=== PATIENT | female | born 1965 | race Caucasian/White ===

== ENCOUNTER 2022-02-08 13:27 | Emergency (ER) | payer OTHER, SELFPAY ==
[2022-02-08 13:28] VITALS: BP 148/78; PULSE 89; RESP 15; TEMP 36.1; O2SAT 99; BMI 39.6
--- NOTE | 2022-02-08 13:58 | EDS_ITS ---
HPI History of Present Illness Chief Complaint: Headache Informant: patient Onset/Context/Timing Onset: Weeks (3) Context: Gradual Timing: Continuous Quality -Headache: Positive for Other (Pressure) Location: Generalized Worsened by: Bending forward Relieved by: Nothing Associated Symptoms/Injury Associated Symptoms: Positive for Nausea; Negative for Fever, Vomiting, Sore Throat, Sinus Pressure, Numbness, Tingling, Preceding Aura, Visual Changes, Blurred Vision, Photophobia or Visual Loss Injury - CAVAZOS: Negative for Direct Trauma, Fall or Assault Narrative Narrative: Patient presents with a headache that has been getting progressively worse over the last 3 days. Patient states it is gradually getting worse. Patient states it starts in the occipital region and radiates to the front of her head. Patient describes it as a pressure. Patient states it is worse whenever she bends forward. Patient admits to some nausea but denies any vomiting. Patient denies any visual changes. Patient denies any sinus pressure or sore throat. Patient states she does do a lot of lifting at work. Patient was seen at urgent care and now clinic. Patient states the medications they gave her have not been helping. [facility] Medical History Chronic stomach ulcer Hemorrhoids Home Medications cholecalciferol (vitamin D3) 10 mcg (400 unit) capsule 10 mcg PO DAILY 02/06/22 [History Last Taken Unknown] cyclobenzaprine 10 mg tablet 10 mg PO TID PRN muscle spasm 5 days #20 tabs 02/06/22 [Rx Last Taken Unknown] Allergy/AdvReac Type Severity Reaction Status Date / Time latex Allergy Intermediate hives Verified 02/08/22 13:29 Penicillins Allergy Intermediate hives Verified 02/08/22 13:29 Family History (Updated 02/06/22 @ 11:23 by Bea Ray RN) Other CVA (cerebral vascular accident) Cancer Thyroid disorder Social History Smoking Status: Never smoker ROS ROS ED Constitutional Constitutional ED: Denies chills or fever(s) Eyes Eyes: Denies blurry vision or change in vision ENT ENT ED: Denies rhinorrhea or sore throat Cardiovascular Cardiovascular: Denies chest pain or palpitations Respiratory/Chest Respiratory/Chest: Denies cough or dyspnea Gastrointestinal Gastrointestinal: Reports nausea; Denies vomiting Genitourinary Genitourinary ED: Denies dysuria or hematuria Musculoskeletal Musculoskeletal: Reports neck pain; Denies back pain Integumentary Denies abscess or rash Neurologic Neurologic: Reports headache(s); Denies weakness Allergic/Immunologic Allergic/Immunologic ED: Denies mouth swelling or urticaria EXAM Physical Exam Const Vital Signs: 02/08/22 13:28 Temperature 97 F L Temperature Source Temporal Pulse Rate 89 Respiratory Rate 15 Blood Pressure 148/78 H Blood Pressure Mean 101 Pulse Ox 99 Oxygen Delivery Method Room Air Positive well nourished and well developed General Appearance ED: well developed HEENT Reports moist mucous membranes Eyes PERRL and EOMs intact bilaterally Eyes Narrative: Funduscopic examination is benign bilaterally. Neck supple and no JVD Neck Narrative: There is mild tenderness over the cervical paraspinal muscles. There is no midline tenderness. There is no edema or ecchymosis. There is no bony crepitance or step-off. There is good range of motion. Resp normal respiratory effort and clear to auscultation bilaterally Cardio regular rate, regular rhythm and no murmurs GI normal to inspection, nondistended, normoactive bowel sounds and non-tender Palpation: soft Extremity normal to inspection General Extremety ED: Negative for edema or tenderness General Extremity: Negative for edema Neuro oriented x3, CN's II-XII intact bilaterally and no sensory deficits noted Sensorium / Orientation: alert Motor Exam: strength 5/5 throughout Psych mental status grossly normal Skin no rashes or lesions noted MDM MDM MDM Narrative Medical decision making narrative: Patient was given IV fluids, Reglan, and Benadryl initially. CT scan of the brain was obtained. There is no acute intracranial abnormality. This was interpreted by the radiologist and reviewed by myself. Patient had minimal relief of her headache. Patient was given a dose of Toradol and Imitrex. Patient was feeling better after this. Patient was instructed to rest in a dark quiet room. Patient was instructed to drink plenty of fluids. Patient was instructed to follow-up with her primary care physician in 5 to 7 days. Patient understood and was agreeable with the plan. All questions were answered. Radiography Diagnostic Testing: Clinical Impression(s) from Imaging Studies Brain CT 02/08/22 14:02 IMPRESSION: Chronic involutional changes of the brain. Electronically Signed: Sreedhar Alexander MD at 15:23 EDT , Discharge Plan Triage Chief Complaint: Headache ED Provider: Rocky Reynoso Dx/Rx/DC Orders Clinical Impression: Head ache Instructions: ED Headache Unspecified Prescriptions: No Action cholecalciferol (vitamin D3) 10 mcg (400 unit) capsule 10 mcg PO DAILY cyclobenzaprine 10 mg tablet 10 mg PO TID PRN (Reason: muscle spasm) 5 Days Qty: 20 0RF Primary Care Provider: Care Physician,No Primary Referrals: Paige Briceño MD [STAFF PHYSICIAN] - 3-5 Days Disposition Disposition: Home, Self Care
--- NOTE | 2022-02-08 14:02 | CT_ITS ---
STUDY: CT BRAIN WITHOUT CONTRAST REASON FOR EXAM: Female, 56 years old. 3 week history of headaches. RADIATION DOSAGE (If Supplied By Facility): CTDIvol = ( 47.06 ) mGy, DLP = ( 837.39 ) mGycm TECHNIQUE: Transaxial CT imaging of the brain was performed without administration of intravenous contrast material. Individualized dose optimization techniques were used for this CT. COMPARISON: No relevant priors. FINDINGS: Normal soft tissue structures. Normal calvarium. There is mild cerebral atrophy with widening of the extra-axial spaces and ventricular dilatation. Normal white matter tracts of the cerebral hemispheres. Normal basal ganglia and thalami. Normal brainstem. Normal cerebellum. There is no intracranial hemorrhage. There are no findings of an acute ischemic infarction. Normal visualized paranasal sinuses. CT/Brain/Head without Contrast IMPRESSION: Chronic involutional changes of the brain. Electronically Signed: Sreedhar Alexander MD at 15:23 EDT ,
[2022-02-08] MEDS: DiphenhydrAMINE 50 MG/ML Syringe 25 MG IV (14:18)
[2022-02-08] MEDS: 0.9% Normal Saline 1,000 ML 999 ML IV (14:19)
[2022-02-08] MEDS: Metoclopramide 10 MG/2 ML Vial IV (14:19)
[2022-02-08] MEDS: SUMAtriptan 6 MG/0.5 ML Vial SC (15:38)
[2022-02-08] MEDS: Ketorolac 30 MG/ML Syringe IV (15:38)
== END 2022-02-08 17:07 | disposition home or self-care (01) ==
PROVIDERS: Emergency Provider Emergency Medicine; Visit Provider Emergency Medicine
DX: R51.9 Headache, unspecified (principal); R11.0 Nausea
CPT/HCPCS: 70450; 96361; 96372; 96374; 96375; 99282; J3030

== ENCOUNTER 2022-03-01 10:00 | Outpatient (CLI) | payer OTHER, SELFPAY ==
--- NOTE | 2022-03-01 10:03 | MRI_ITS ---
STUDY: MRI RIGHT KNEE REASON FOR EXAM: Medial right knee pain. TECHNIQUE: Standardized fat and water weighted pulse sequences were obtained in all 3 orthogonal planes. COMPARISON: None. FINDINGS: There is a small horizontal tear of the posterior horn of the medial meniscus (proton-density sagittal images 29, 30) and mild blunting of the free margin of the body of the medial meniscus (T2 coronal images 15, 16) with a small displaced fragment in the medial gutter (T2 coronal images 13, 14). There is arthrosis of the medial femorotibial compartment with partial-thickness chondral loss (T2 sagittal image 17) and a chondral tear of the medial femoral condyle (T2 sagittal image 18). Normal medial femoral condyle and tibial plateau. Normal medial collateral ligamentous complex (MCL). Normal distal semimembranosus, gracilis and semitendinosus tendons. Normal lateral meniscus. There is arthrosis of the lateral femorotibial compartment with partial-thickness chondral loss of the lateral femoral condyle (T2 sagittal image 8). Normal lateral femoral condyle and tibial plateau. Normal proximal tibiofibular articulation. Normal lateral collateral (fibular) ligament. Normal popliteus tendon. Normal biceps femoris tendon. There is mild intrasubstance mucoid degeneration of the anterior cruciate ligament (T2 sagittal image 12)). Normal posterior cruciate ligament (PCL). Normal congruent patellofemoral articulation. Normal hyaline cartilage of the patellofemoral compartment. Normal medial and lateral patellar retinaculum. Normal visualized quadriceps tendon. Normal patellar tendon. Normal Hoffa''s fat pad. There is a minimal volume of fluid in the knee joint. There is a small popliteal cyst (T2 sagittal images 16-19). There is mild edema in the anterior subcutis adipose space. The otherwise visualized osseous structures are unremarkable. MRI/Lower Ext Joint Only (Routine) IMPRESSION: Medial meniscal tear. 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 Small popliteal cyst. Electronically Signed: Conor Chase MD at 11:24 EDT ,
== END 2022-03-01 23:59 | disposition home or self-care (01) ==
PROVIDERS: Referring Provider Orthopaedic Surgery Sports Medicine; Visit Provider Orthopaedic Surgery Sports Medicine
DX: S83.411A Sprain of medial collateral ligament of right knee, initial encounter (principal); S83.241A Other tear of medial meniscus, current injury, right knee, initial encounter
CPT/HCPCS: 73721

== ENCOUNTER 2022-10-21 11:27 | Emergency (ER) | payer OTHER, SELFPAY ==
[2022-10-21 11:29] VITALS: BP 146/101; PULSE 81; RESP 14; TEMP 36.2; O2SAT 97; BMI 41.0
--- NOTE | 2022-10-21 11:43 | EX.ED.DYSGE1 ---
HPI <BUD Mendez - Last Filed: 10/21/22 11:51> History of Present Illness Chief Complaint: Lower Extremity Injury Narrative Narrative: 57-year-old female is here with right lower extremity pain. She has been having knee pain for few months and saw Dr. Hill in orthopedics. She had an MRI showing a medial meniscus tear and popliteal cyst. He prescribed meloxicam and the swelling went down but she continues to have pain. The pain now seems more lateral radiating into the calf. It woke her up from sleep last night. She went to urgent care and they sent her here for concern for blood clot. She has no swelling or skin changes. No chest pain or shortness of breath. No history of DVT or PE. No trauma. PFS <BUD Mendez - Last Filed: 10/21/22 11:51> [facility] Medical History (Updated 10/21/22 @ 11:50 by BUD Mendez) Chronic stomach ulcer Contact with and (suspected) exposure to other viral communicable diseases COVID-19 Hemorrhoids MCL sprain of right knee Osteoarthritis of right knee Right knee pain Strain of right gastrocnemius muscle or tendon Tear of medial meniscus of right knee Tension headache URI (upper respiratory infection) Worsening headaches Home Medications cholecalciferol (vitamin D3) 10 mcg (400 unit) capsule 10 mcg PO DAILY 02/06/22 [History Last Taken Unknown] omeprazole 40 mg capsule,delayed release 40 mg PO DAILY 02/22/22 [History Last Taken Unknown] dexamethasone 6 mg tablet 6 mg PO DAILY #5 tabs 09/05/22 [Rx Last Taken Unknown] meloxicam 7.5 mg tablet 7.5 mg PO DAILY PRN pain #14 tabs 10/02/22 [Rx Last Taken Unknown] phenylephrine 5 mg-dextromethorphan 10 mg-acetaminophen 325 mg capsule (Vicks DayQuil Cold and Flu Relief) cap PO PRN 10/02/22 [History Last Taken Unknown] Allergy/AdvReac Type Severity Reaction Status Date / Time latex Allergy Intermediate hives Verified 10/02/22 15:32 Penicillins Allergy Intermediate hives Verified 10/02/22 15:32 Family History Other CVA (cerebral vascular accident) Cancer Thyroid disorder Surgical History Hx of breast biopsy Hx of hysterectomy Social History Smoking Status: Never smoker ROS <BUD Mendez - Last Filed: 10/21/22 11:51> ROS ED ROS Narrative Constitutional: Negative for fever, chills, malaise. CVS: Negative for chest pain. Respiratory: Negative for shortness of breath. GI: Negative for abdominal pain, nausea, vomiting. Neuro: Negative for motor/sensory dysfunction. Skin: Negative for rash, abscess, or wound. Musc: Positive for right knee pain. No swelling or trauma. Heme: Negative for easy bruising, bleeding, lymphadenopathy. EXAM <BUD Mendez - Last Filed: 10/21/22 11:51> Physical Exam Narrative Exam Narrative: CONST: Patient sitting in no acute distress. EYES: Normal inspection. NECK: Normal inspection. RESP: No respiratory distress, CTAB. CVS: Regular rate and rhythm, no murmur, no gallop. SKIN: Color normal, no rash, warm, dry, intact. EXTREMITIES: Normal appearance of bilateral lower extremities, full range of motion, normal sensation and 2+ DP pulses. Tender over right lateral knee just under the joint along the upper calf area. There is no tenderness over the deep venous system, popliteal region, medial thigh. No swelling or skin changes. Normal extension, negative anterior and posterior drawer and varus and valgus stress. NEURO: Oriented x4. PSYCH: Normal affect. Const Vital Signs: 10/21/22 11:29 Temperature 97.2 F L Temperature Source Temporal Pulse Rate 81 Respiratory Rate 14 Blood Pressure 146/101 H Blood Pressure Mean 116 Pulse Ox 97 Oxygen Delivery Method Room Air <Dr. Rocky Reynoso, DO - Last Filed: 10/21/22 12:48> Physical Exam Const Vital Signs: 10/21/22 11:29 Temperature 97.2 F L Temperature Source Temporal Pulse Rate 81 Respiratory Rate 14 Blood Pressure 146/101 H Blood Pressure Mean 116 Pulse Ox 97 Oxygen Delivery Method Room Air MDM <BUD Mendez - Last Filed: 10/21/22 11:51> MDM MDM Narrative Medical decision making narrative: History gathered from: Patient, significant other Patient has subacute right knee pain. Pain worsened to the lateral aspect recently. She does have some tenderness of the upper lateral gastrocnemius area. No bony tenderness. Full range of motion and neurovascularly intact. There is no tenderness of the deep venous system or palpable cords. No edema or signs of infection. I reviewed her orthopedic notes with Dr. Hill. MRI last year showed medial meniscus tear and a small popliteal cyst. Recent office visit from September 2022 showed suspected gastroc tendinitis treated with meloxicam. She states this is no longer helping. They have little concern this is a DVT based on location and chronicity of the symptoms but patient would like reassurance with an ultrasound. They are not available today so this will be ordered for tomorrow. Patient did not want any pain medication here. I advised she can try Voltaren gel on the area and continue [id number] analgesia. I recommended following up again with orthopedics. She was agreeable with this plan and discharged in stable condition. Differential: Muscle spasm, tendinitis, DVT Test considered but not ordered: No recent trauma no bony tenderness no indication for x-ray. External records reviewed: MRI of the lower extremity on 03/01/2022 shows a medial meniscal tear, arthrosis of medial labral femoral-tibial compartments, and small popliteal cyst. <Dr. Rocky Reynoso, DO - Last Filed: 10/21/22 12:48> [facility] Treatment and Re-Evaluation :: I have personally performed a face to face assessment of the patient and have reviewed the [facility] Note. I performed a substantive portion of the visit including all aspects of the following. My sheppard findings include: History: Patient presents with pain to her right calf and posterior knee that has been getting worse over the past few days. Patient was seen at urgent care earlier today and was referred to the emergency department for possible DVT. Patient states her pain is mainly over the posterior lateral aspect of the right knee. Patient had a recent MRI which showed a medial meniscus tear. Patient denies any new trauma or injury. Patient states her pain radiates down her right lower leg. Exam: Vital signs are stable. Patient is afebrile. Patient is in no acute distress. Musculoskeletal exam reveals tenderness over the biceps femoris tendon and head of the gastrocnemius. There is no edema or ecchymosis. There is no calf tenderness. There is no bony crepitance or step-off. There is full range of motion of the right knee. Pedal pulses are equal bilaterally. Sensation is intact to light touch in all digits. There is no pain with dorsiflexion of the ankle. Medical Decision Making: Differential diagnosis includes tendinitis, muscle strain, and DVT. My clinical suspicion for DVT is low. Patient will be given a prescription for an outpatient venous duplex to be obtained tomorrow since it is unavailable at the present time. I do not feel patient requires a dose of Lovenox since my suspicion for DVT is low. Patient was instructed to continue her analgesics as prescribed. Patient was instructed to follow-up with her orthopedic surgeon in 5 to 7 days. Patient was instructed to follow-up with her primary care physician as well. Patient understood and was agreeable with the plan. All questions were answered. Discharge Plan Triage Chief Complaint: Lower Extremity Injury ED Midlevel Provider: Edwina Doss ED Provider: Rocky Reynoso Dx/Rx/DC Orders Clinical Impression: Knee pain, right Instructions: ED Knee Pain of Uncertain Cause Prescriptions: No Action cholecalciferol (vitamin D3) 10 mcg (400 unit) capsule 10 mcg PO DAILY omeprazole 40 mg capsule,delayed release(DR/EC) 40 mg PO DAILY dexamethasone 6 mg tablet 6 mg PO DAILY Qty: 5 0RF Vicks DayQuil Cold-Flu Relief 5-10-325 mg capsule PO PRN meloxicam 7.5 mg tablet 7.5 mg PO DAILY MDD 2 PRN (Reason: pain) Qty: 14 1RF Other Ambulatory Orders: Venous Duplex US, Unilateral (Stat) Facility: [facility] - Location: [facility] Ordered By: Edwina Doss Primary Care Provider: Care Physician,No Primary Referrals: Care Physician,No Primary [Primary Care Provider] - Disposition Disposition: Home, Self Care Discharge Date/Time: 10/21/22 11:58
== END 2022-10-21 11:58 | disposition home or self-care (01) ==
LOC: ED 11:54
PROVIDERS: Emergency Provider Emergency Medicine; Visit Provider Emergency Medicine
DX: M25.561 Pain in right knee (principal); Z87.11 Personal history of peptic ulcer disease; Z79.899 Other long term (current) drug therapy; M71.21 Synovial cyst of popliteal space [Baker], right knee
CPT/HCPCS: 99282

== ENCOUNTER → 2022-10-22 | Outpatient (CLI) | payer OTHER, SELFPAY ==
--- NOTE | 2022-10-22 12:49 | VDLE_ITS ---
Reason For Study: RLE PAIN RIGHT GSV is normal. CFV is compressible, spontaneous, phasic, competent and demonstrates normal augmentation. FV is compressible, spontaneous, phasic, competent and demonstrates normal augmentation. POP V is compressible, spontaneous, phasic, competent and demonstrates normal augmentation. T/P Trunk is compressible. PTV is compressible. RT PerV is compressible. Procedure This is a venous duplex using B-mode, color flow and spectral Doppler. Exam performed in department. The exam was diagnostic. Image # 10 & 11are the PTV & PERV. VL/Venous Duplex US, Unilateral Interpretation Summary Right no DVT or SVT. Ordering Physician: Edwina Doss Referring Physician: NO PCP Performed By: Yvonne Lopez, RDCARLO, RVT
== END | disposition home or self-care (01) ==
LOC: CVS 12:48
PROVIDERS: Visit Provider Physician Assistant
DX: M79.604 Pain in right leg (principal)
CPT/HCPCS: 93971

== ENCOUNTER → 2024-10-23 | Outpatient (CLI) | payer OTHER, SELFPAY ==
[2024-10-23 14:47] LABS: Absolute Lymphocyte Count 1.83 X10^3/uL (0.83-4.51); Absolute Neutrophil Count 4.1 X10^3/uL (2.0-7.7); Basophil# 0.02 X10^3/uL; Basophil% 0.3 % (0-1); Eosinophil# 0.14 X10^3/uL; Eosinophils% 2.2 % (0-5); Hematocrit 40.8 % (37-47); Hemoglobin 12.9 g/dL (12.0-15.0); Lymphocyte # 1.83 X10^3/ul (0.83-4.51); Lymphocyte % 28.3 % (19-41); Mean Corp Hgb Conc 31.6 g/dL (32-36); Mean Corpuscular Hgb 26.8 pg (27.0-32.0); Mean Corpuscular Volume 84.6 fL (81-99); Mean Platelet Vol. 10.4 fl (6.2-12.0); Monocyte# 0.41 X10^3/uL; Monocyte% 6.3 % (0-10); NRBC Flagged by Analyzer 0 % (0-5); Neutrophil # 4.06 X10^3/uL (2.7-7.7); Neutrophil % 62.7 % (47-70); Platelet Count 262 K/mm3 (150-450); RBC Distribution Width CV 14.1 % (11.6-14.6); RBC Distribution Width SD 43.4 fl (35.1-43.9); Red Blood Count 4.82 M/mm3 (4.2-5.4); White Blood Count 6.5 K/mm3 (4.4-11.0)
[2024-10-23 15:12] LABS: ALB/GLOB Ratio 1.4 RATIO (0.9-2.4); AST(SGOT) 19 U/L (<=31); Alanine Aminotransfer ALT/SGPT 19 U/L (<=34); Albumin, Serum 4.1 g/dL (3.5-5.0); Alkaline Phosphatase 98 U/L (35-104); Anion Gap 9 (5-15); BUN 10 mg/dL (4-19); Calcium,Total 9.1 mg/dL (7.6-11.0); Carbon Dioxide 27.4 mmol/L (21.0-32.0); Chloride 107 mmol/L (98-108); Creatinine, Serum 0.69 mg/dL (0.70-1.20); EST Glomerular Filtration Rate 101 (>60); Globulin 2.9 g/dL (2.2-4.2); Glucose 115 mg/dL (70-99); Potassium 3.9 mmol/L (3.3-5.1); Sodium Level 143 mmol/L (133-145)
[2024-10-26 14:08] LABS: Immunoglobulin A 198 mg/dL (87-352); t-Transglutaminase IgA <2 U/mL (0-3)
== END | disposition home or self-care (01) ==
LOC: LAB 14:15
PROVIDERS: Referring Provider Student in an Organized Health Care Education/Training Program; Visit Provider Student in an Organized Health Care Education/Training Program
DX: K90.0 Celiac disease (principal)
CPT/HCPCS: 36415; 80053; 82784; 83516; 85025

== ENCOUNTER 2025-01-15 10:54 | Day surgery (SDC) | payer OTHER, SELFPAY ==
[2025-01-15] VITALS (8 sets, daily range): BP systolic 98–124; BP diastolic 49–64; PULSE 59–70; RESP 16–18; TEMP 36.2–36.4; O2SAT 97–100; BMI 38.3
[2025-01-15] MEDS: Lactated Ringers 1,000 ML 15 ML IV (11:21)
--- NOTE | 2025-01-15 11:24 | PRE.ANES_ITS ---
ASA Classification* ASA Classification ASA Classification: 3 Assessment & Plan Anesthesia* Anesthesia Assessment Anesthesia Assessment: Discussed sedation and/or anesthesia options, risks, benefits, and alternatives with patient/parents/legal guardian/POA. Questions invited. The patient/parents/legal guardian/POA seems to understand and agrees to proceed with anesthesia plan. Reviewed the physical assessment, medical history, allergy history and patient home medications list prior to surgery/procedure/anesthetic and documented any changes. Performed airway and anesthesia risk assessments. Anesthesia Type Anesthesia Type: MAC Anesthesia Focused Assessment* Temperature: 97.2 F Pulse Rate: 70 Blood Pressure: 124/64 Respiratory Rate: 18 Pulse Ox: 100 Airway Assessment Mouth opens: >3 cm Mallampati Score: II Labs Anesthesia Preop lab: CBC WBC 6.5 K/mm3 (4.4-11.0) 10/23/24 14:18 10/23/24 RBC 4.82 M/mm3 (4.2-5.4) 10/23/24 14:18 10/23/24 Hgb 12.9 g/dL (12.0-15.0) 10/23/24 14:18 10/23/24 Hct 40.8 % (37-47) 10/23/24 14:18 10/23/24 Plt Count 262 K/mm3 (150-450) 10/23/24 14:18 10/23/24 CHEMISTRY Potassium 3.9 mmol/L (3.3-5.1) 10/23/24 14:18 10/23/24 Sodium 143 mmol/L (133-145) 10/23/24 14:18 10/23/24 BUN 10 mg/dL (4-19) 10/23/24 14:18 10/23/24 Creatinine 0.69 mg/dL (0.70-1.20) L 10/23/24 14:18 Glucose 115 mg/dL (70-99) H 10/23/24 14:18 10/23/24 COAG Pre-Assessment Diagnosis/Proposed Procedure Planned Operative Procedure(s): CSCOPE, EGD Anesthesia History Anesthesia History - echo vascular technologist: Anesthesia History - echo vascular technologist Hx Hospitalization No 01/12/25 12:37 Any Problems With Anesthesia No 01/12/25 12:37 Cholinesterase deficiency No 01/12/25 12:37 You/Your Family Experience No 01/12/25 12:37 fever (hyperthermia) with Relationship Recent Exposure to Contagious No 01/15/25 11:10 Disease Does patient have nerve No 01/12/25 12:37 stimulator Patient instructed to have device shut off --Does patient have Pacemaker or ICD? When Was Last Pacemaker Check QUESTION #4 FULL TEXT: You/Your Family Experience fever (hyperthermia) with Anesthesia Last Oral Intake Last Oral intake: Last Oral Intake NPO since Meds taken in AM with sips of water? Meds patient instructed to take am of surgery PONV PONV - echo vascular technologist: PONV - echo vascular technologist Female Yes 01/12/25 12:37 HX of Motion Sickness Yes 01/12/25 12:37 HX of N/V After Surgery Yes 01/12/25 12:37 Non-Smoker Yes 01/12/25 12:37 Duration of Surgery greater No 01/12/25 12:37 than 60 minutes Number of Risk Factors 4 01/12/25 12:37 PONV Score Severe Risk 01/12/25 12:37 Height & Weight Height & Weight: Anesthesia: Height & Weight Height 5 ft 1 in 01/15/25 11:10 Weight: 92 kg 01/15/25 11:10 Body Mass Index (BMI) 38.3 01/15/25 11:10 Respiratory Assessment Respiratory Assessment - echo vascular technologist: Respiratory Tract Infection Hx - echo vascular technologist Hx Respiratory Tract Infection No 01/12/25 12:37 STOP Sleep Apnea STOP Sleep Apnea - echo vascular technologist: STOP Sleep Apnea - echo vascular technologist Hx Hypertension No 01/12/25 12:37 Hx Sleep Apnea No 01/12/25 12:37 CPAP BIPAP Do you snore loudly (louder No 01/12/25 12:37 than talking or can be heard Do you often feel tired/ No 01/12/25 12:37 fatigued/ sleepy during daytime? Has anyone observed you stop No 01/12/25 12:37 breathing during sleep? STOP Results Negative 01/12/25 12:37 QUESTION #5 FULL TEXT : Do you snore loudly (louder than talking or can be heard through closed doors)? 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 Specify any problems Hx of Preganancy in last 3 N/A 01/12/25 12:37 Months Nurse Filling Out Transfusion NBUCHER 01/12/25 12:37 & Questions: Date: 01/12/25 01/12/25 12:37 Time: 12:38 01/12/25 12:37 Patient unable to answer at this time (ie. confused, unrespo /Reproduction History /Reproductive History - echo vascular technologist: /Reproductive Hx- echo vascular technologist Hx Now No 01/12/25 12:37 Gestational Age (in weeks): EDC: Hx Hx Para Hx Section SAB No 01/12/25 12:37 Active Medications Active Medications: Current Medications Generic Name Dose Route Start Last Admin Trade Name Freq PRN Reason Stop Dose Admin Lactated Ringer's 1,000 mls @ 15 mls/hr 01/15/25 11:00 01/15/25 11:21 IV 15 mls/hr .Q48H FARSHAD Administration PFSH Medical History Loss of hearing Osteoarthritis Anemia Restless legs Dietary restriction History of hiatal hernia History of IBS Diverticulosis PONV (postoperative nausea and vomiting) GERD (gastroesophageal reflux disease) Leg cramps Former smoker Strain of right gastrocnemius muscle or tendon COVID-19 Contact with and (suspected) exposure to other viral communicable diseases URI (upper respiratory infection) Osteoarthritis of right knee MCL sprain of right knee Tear of medial meniscus of right knee Right knee pain Tension headache Worsening headaches Chronic stomach ulcer Hemorrhoids Home Medications ?Medication ?Instructions ?Recorded ?Last Taken ?Type cholecalciferol (vitamin D3) 10 10 mcg PO DAILY Unknown History mcg (400 unit) capsule omeprazole 40 mg capsule,delayed 40 mg PO QHS 02/22/22 Unknown History release Allergy/AdvReac Type Severity Reaction Status Date / Time latex Allergy Intermediate hives Verified 01/15/25 11:08 Penicillins Allergy Intermediate hives Verified 01/15/25 11:08 Family History Other CVA (cerebral vascular accident) Cancer Thyroid disorder Surgical History History of esophagogastroduodenoscopy (EGD) History of colonoscopy History of total knee replacement (09/10/23) Hx of breast biopsy Hx of hysterectomy Social History Smoking Status: Never smoker Review of Systems (Anesthesia) ROS Narrative System reviewed and no additional complaints, except as documented.
--- NOTE | 2025-01-15 12:00 | EGD_PTH ---
PATIENT: HAMIDA ARMSTRONG LOC: EN U#:[id number] AGE/SX: 59/F ROOM: RE01/15/[address]: Dr. Wojciech Spence DO : 1965 BED: DIS: 01/15/2025 SPEC #: [id number] RECD: 01/15/25 15:58 STATUS: AKBAR REJt #: [id number] LAVON: 01/15/25 12:[address]: Wojciech Spence DEPT: SURGICAL PATHOLOGY RECD BY: Josse Oliveros ENTERED: 01/18/25 08:36 SP TYPE: EGD BIOPSY OTHR DR: No Primary Care Phys Tissues: A - Duodenum, NOS B - Gastric mucous membrane C - Ileum, NOS D - Cecum, NOS E - COLON BIOPSY Procedures: Immunohistochemical Stains Surgery Specimen Level IV HEADER OPERATION: Colonoscopy, EGD and biopsy PRE-OP DIAGNOSIS: Abdominal pain, diarrhea, celiac disease TISSUE SUBMITTED: A- Duodenum biopsy, B- Gastric body biopsy, C- Terminal ileum biopsy, D- Cecum biopsy, E- Random colon biopsy MICROSCOPIC DIAGNOSIS A. Duodenum, biopsy: * Kaitlin gland hyperplasia with gastric mucin cell metaplasia suggestive of peptic injury. * Negative for increased intraepithelial lymphocytes. B. Stomach, body, biopsy: No specific pathologic change. IHC negative for H pylori organisms. C. Terminal ileum, biopsy: No specific pathologic change. D. Colon, cecum, biopsy: No specific pathologic change. E. Colon, random, biopsy: * No specific pathologic change. * The histologic features of microscopic colitis are not demonstrated. MICROSCOPIC DESCRIPTION Slides are reviewed. All matched controls reacted appropriately. These tests were developed and their performance characteristics determined by [facility]. They may not have been cleared or approved by the U.S. Food and Drug Administration. The FDA has determined that such clearance or approval is not necessary. The above immunohistochemical/dualISH markers are viewed by the Pathologist. GROSS DESCRIPTION A. Received in fixative is one container labeled with the patient's name and designated Duodenum biopsy. The specimen consists of three irregular fragments of light etienne soft tissue that in aggregate measure 0.3 to 0.7 cm. The specimen is totally submitted in one cassette. B. Received in fixative is one container labeled with the patient's name and designated Gastric body. The specimen consists of two irregular fragments of light etienne soft tissue that in aggregate measure 0.4 and 0.6 cm. The specimen is totally submitted in one cassette. C. Received in fixative is one container labeled with the patient's name and designated Biopsy terminal ileum. The specimen consists of two irregular fragments of light etienne soft tissue that in aggregate measure 0.3 and 0.4 cm. The specimen is totally submitted in one cassette. D. Received in fixative is one container labeled with the patient's name and designated Cecum biopsy. The specimen consists of one irregular fragment of light etienne soft tissue that measures 0.7 cm. The specimen is totally submitted in one cassette. E. Received in fixative is one container labeled with the patient's name and designated Random colon biopsies. The specimen consists of etienne soft tissue measuring 1.4 x 0.7 x 0.2cm in aggregate. UT/ 01/18/2025 CPT:28189g2,60253
--- NOTE | 2025-01-15 12:07 | HP.PCM_ITS ---
HPI - General General Date of Admission: 01/15/25 Date of Service: 01/15/25 Chief Complaint: Abdominal pain and diarrhea HPI Narrative Pt has a PMHx of celiac disease diagnosed in 2014. Pt recently moved to the area and wanted to reestablish her care. She has been struggling with urgent soft stools after she eats for a few years. HSe has about 4-5 bm per day. She does not ever have solid formed stools. She has been gluten free since 2014 but she feels its possible that she has had accidental exposure. She notes that her daughter has also been diagnosed with celiac. Her father of colon cancer in his 60s. Last EGD (inflammation) and colonoscopy (polyps and diverticulosis) in 2021. [facility] Medical History Loss of hearing Osteoarthritis Anemia Restless legs Dietary restriction History of hiatal hernia History of IBS Diverticulosis PONV (postoperative nausea and vomiting) GERD (gastroesophageal reflux disease) Leg cramps Former smoker Strain of right gastrocnemius muscle or tendon COVID-19 Contact with and (suspected) exposure to other viral communicable diseases URI (upper respiratory infection) Osteoarthritis of right knee MCL sprain of right knee Tear of medial meniscus of right knee Right knee pain Tension headache Worsening headaches Chronic stomach ulcer Hemorrhoids Home Medications ?Medication ?Instructions ?Recorded ?Last Taken ?Type cholecalciferol (vitamin D3) 10 10 mcg PO DAILY Unknown History mcg (400 unit) capsule omeprazole 40 mg capsule,delayed 40 mg PO QHS 02/22/22 Unknown History release Allergy/AdvReac Type Severity Reaction Status Date / Time latex Allergy Intermediate hives Verified 01/15/25 11:08 Penicillins Allergy Intermediate hives Verified 01/15/25 11:08 Family History Other CVA (cerebral vascular accident) Cancer Thyroid disorder Surgical History History of esophagogastroduodenoscopy (EGD) History of colonoscopy History of total knee replacement (09/10/23) Hx of breast biopsy Hx of hysterectomy Social History Smoking Status: Never smoker ROS Constitutional Constitutional: Denies fatigue, fever(s), poor appetite, weight gain or weight loss Gastrointestinal Gastrointestinal: Denies belching, bloating, change in bowel habits, change in stool character, chewing difficulty, coffee ground emesis, constipation, cramping, diarrhea, dyspepsia, dysphagia, early satiety, excessive flatus, fecal incontinence, heartburn, hematemesis, hematochezia, hemorrhoids, loose stools, melena, nausea, odynophagia, rectal bleeding, tenesmus, vomiting or weight changes Vital Signs Vital Signs Vital Signs: 01/15/25 11:10 01/15/25 11:10 01/15/25 11:25 Temperature 97.2 F L 97.2 F L Temperature Source Temporal Pulse Rate 70 70 Respiratory Rate 18 18 Respiratory Pattern Normal Blood Pressure 124/64 H 124/64 H Blood Pressure Mean 84 Blood Pressure Source Monitor Blood Pressure Position Semi-Fowlers Blood Pressure Location Right Arm Pulse Ox 100 100 Oxygen Delivery Method Room Air Weight Weight: 202 lb 13.204 oz Body Mass Index (BMI) 38.3 Physical Exam Const alert, oriented x3, no apparent distress and healthy appearing General Appearance: cooperative GI normal to inspection, nondistended, normoactive bowel sounds, soft to palpation, non-tender and non-distended Percussion: normal to percussion Rectal Exam: deferred Assessment & Plan Assessment/Plan (1) Celiac disease: (2) Abdominal pain: (3) Diarrhea: PLAN: Assessment and Plan Assessment and Plan (1) Abdominal symptoms: (2) Celiac disease: Status: Acute Plan: This is a 59 yo female pt here today for evaluation of celiac disease. Pt diagn osed with Celiac in 2014 and has avoided all gluten since. Over the past few years pt has had issues with soft urgent stools 4-5x per day. I will order celiac blood test to determine if she has had an accidental exposure. Pt has family hx of colon cancer in her father at age 60. She will also have an EGD and colonoscopy to evaluate her GI tract. -EGD and colonoscopy -Gluten avoidance -IGa and ttg iga Orders: Orders Immunoglobulin A Today K90.0 - Celiac disease t-Transglutaminase IgA Today K90.0 - Celiac disease Comprehensive Metabolic Profil Today K90.0 - Celiac disease CBC W/Diff, Automated Today K90.0 - Celiac disease
--- NOTE | 2025-01-15 13:25 | PCM.POST.ANE ---
Anesthesia: Postop Eval I Current Vital Signs Temperature: 97.6 F Pulse Rate: 62 Blood Pressure: 120/56 Respiratory Rate: 16 Pulse Ox: 99 Oxygen Delivery Method: Room Air Assessment Airway patent: Yes Spontaneous unlabored respirations: Yes Mental status: Awake and Calm nausea: No Vomiting: No Anesthesia Complication: No Fluid Hydration Crystalloid volume administer (ml): 700 Total IV fluid infused: 700 Progress Note Anesthesia document: Postop Eval 1 completed: Yes
--- NOTE | 2025-01-15 13:27 | PCM.POSTANE2 ---
Anesthesia Postop Eval I Sum Postop Eval Completion status Anesthesia document: Postop Eval 1 completed: Yes Anesthesia Postop Eval I Summary Anesthesia Postop Eval I Summary: Anesthesia Postop Eval I: Assessment Summary Airway patent Yes 01/15/25 13:27 [email or web address] Spontaneous unlabored Yes 01/15/25 13:27 [email or web address] respirations Mental status Awake,Calm 01/15/25 13:27 [email or web address] nausea No 01/15/25 13:27 [email or web address] Vomiting No 01/15/25 13:27 [email or web address] Anesthesia Postop Eval I: Fluid Summary Crystalloid volume administer 700 01/15/25 13:27 [email or web address] (ml) Colloids volume administered ( ml) Blood Product volume administered (ml) Total IV fluid infused 700 01/15/25 13:27 [email or web address] Anesthesia Postop Eval I: Summary Notes Anesthesia Complication No 01/15/25 13:27 [email or web address] Anesthesia Complication Comment: Post-operative progress note Anesthesia: Postop Eval II Evaluation Mental status: Awake Pain Level: 0 nausea: No Vomiting: No
--- NOTE | 2025-01-15 13:29 | OP.CCLET_ITS ---
01/15/2025 No Primary Care Physician Re : Upper GI endoscopy procedure for Marta Zamora Dear Care Physician This procedure was performed on Wednesday, January 15, 2025. My impressions and recommendations are as follows: Impressions : - Normal esophagus. - Erythematous mucosa in the gastric body. Biopsied. - Duodenitis. Biopsied. Recommendations : - Discharge patient to home. - Resume previous diet. - Continue present medications. - Await pathology results. My findings are described in the full procedure note, which is enclosed. If I can be of further assistance, please feel free to contact me at . Sincerely, Wojciech Spence, 01/15/2025 1:28:40 PM This report has been signed electronically.
--- NOTE | 2025-01-15 13:29 | OP.EGD_ITS ---
Patient Name: Marta Zamora Procedure Date: 01/15/2025 12:49 PM Date of : 1965 Age: 59 Procedure: Upper GI endoscopy Indications: Epigastric abdominal pain, Functional Dyspepsia Providers: Wojciech Spence DO Referring MD: No Primary Care Physician Medicines: Monitored Anesthesia Care Patient Profile: This is a 59 year old female. Refer to note in patient chart for documentation of history and physical. Patient has symptoms of chronic abdominal cramping, chronic abdominal distention and acute epigastric abdominal pain. Complications: No immediate complications. Procedure: Pre-Anesthesia Assessment: - Prior to the procedure, a History and Physical was performed, and patient medications and allergies were reviewed. The patient is competent. The risks and benefits of the procedure and the sedation options and risks were discussed with the patient. All questions were answered and informed consent was obtained. Patient identification and proposed procedure were verified by the physician in the pre-procedure area. Mental Status Examination: alert and oriented. Airway Examination: normal oropharyngeal airway and neck mobility. Respiratory Examination: clear to auscultation. CV Examination: normal. Prophylactic Antibiotics: The patient does not require prophylactic antibiotics. Prior Anticoagulants: The patient has taken no anticoagulant or antiplatelet agents except for NSAID medication. ASA Grade Assessment: II - A patient with mild systemic disease. After reviewing the risks and benefits, the patient was deemed in satisfactory condition to undergo the procedure. The anesthesia plan was to use monitored anesthesia care (MAC). Immediately prior to administration of medications, the patient was re-assessed for adequacy to receive sedatives. The heart rate, respiratory rate, oxygen saturations, blood pressure, adequacy of pulmonary ventilation, and response to care were monitored throughout the procedure. The physical status of the patient was re-assessed after the procedure. After obtaining informed consent, the endoscope was passed under direct vision. Throughout the procedure, the patient's blood pressure, pulse, and oxygen saturations were monitored continuously. The colonoscope was introduced through the mouth, and advanced to the third part of the duodenum. Small bowel enteroscopy was deemed necessary. The upper GI endoscopy was accomplished without difficulty. The patient tolerated the procedure well. Scope In: 12:57:16 PM Scope Out: 1:00:48 PM Total Procedure Duration Time 0 hours 3 minutes 32 seconds Findings: The examined esophagus was normal. Patchy mildly erythematous mucosa without bleeding was found in the gastric body. Biopsies were taken with a cold forceps for histology. Verification of patient identification for the specimen was done. Estimated blood loss was minimal. Patchy mild inflammation characterized by erosions, erythema and friability was found in the duodenal bulb and in the first portion of the duodenum. Biopsies were taken with a cold forceps for histology. Verification of patient identification for the specimen was done. Estimated blood loss was minimal. Impression: - Normal esophagus. - Erythematous mucosa in the gastric body. Biopsied. - Duodenitis. Biopsied. Recommendation: - Discharge patient to home. - Resume previous diet. - Continue present medications. - Await pathology results. Procedure Code(s): --- Professional --- 43387, Small intestinal endoscopy, enteroscopy beyond second portion of duodenum, not including ileum; with biopsy, single or multiple CPT copyright 2021 [employer]. All rights reserved. The codes documented in this report are preliminary and upon breastfeeding educator review may be revised to meet current compliance requirements. Wojciech Spence DO 01/15/2025 1:28:40 PM This report has been signed electronically. Number of Addenda: 0 Note Initiated On: 01/15/2025 12:49 PM
--- NOTE | 2025-01-15 13:32 | OP.CCLET_ITS ---
01/15/2025 No Primary Care Physician Re : [facility] This procedure was performed on Wednesday, January 15, 2025. My impressions and recommendations are as follows: Impressions : - Hypertrophied anal papilla(e) found on perianal exam. - Non-bleeding hemorrhoids. - Rectal prolapse. - Congested mucosa in the recto-sigmoid colon, in the descending colon, in the ascending colon and in the cecum. Biopsied. - The examined portion of the ileum was normal. Biopsied. Recommendations : - Discharge patient to home. - Resume previous diet. - Continue present medications. - Await pathology results. - Repeat colonoscopy in 5 years for surveillance. My findings are described in the full procedure note, which is enclosed. If I can be of further assistance, please feel free to contact me at . Sincerely, Wojciech Spence, 01/15/2025 1:32:01 PM This report has been signed electronically.
--- NOTE | 2025-01-15 13:32 | OP.COLON_ITS ---
Patient Name: Marta Zamora Procedure Date: 01/15/2025 1:01 PM Date of : 1965 Age: 59 Procedure: Colonoscopy Indications: Abdominal pain in the left lower quadrant, Chronic diarrhea Providers: Wojciech Spence DO Referring MD: Ivory Primary Care Physician Medicines: Monitored Anesthesia Care Patient Profile: This is a 59 year old female. Refer to note in patient chart for documentation of history and physical. Patient has symptoms of chronic abdominal cramping, chronic abdominal distention and acute epigastric abdominal pain. Last Colonoscopy: 3 years ago. Complications: No immediate complications. Procedure: Pre-Anesthesia Assessment: - Prior to the procedure, a History and Physical was performed, and patient medications and allergies were reviewed. The patient is competent. The risks and benefits of the procedure and the sedation options and risks were discussed with the patient. All questions were answered and informed consent was obtained. Patient identification and proposed procedure were verified by the physician in the pre-procedure area. Mental Status Examination: alert and oriented. Airway Examination: normal oropharyngeal airway and neck mobility. Respiratory Examination: clear to auscultation. CV Examination: normal. Prophylactic Antibiotics: The patient does not require prophylactic antibiotics. Prior Anticoagulants: The patient has taken no anticoagulant or antiplatelet agents except for NSAID medication. ASA Grade Assessment: II - A patient with mild systemic disease. After reviewing the risks and benefits, the patient was deemed in satisfactory condition to undergo the procedure. The anesthesia plan was to use monitored anesthesia care (MAC). Immediately prior to administration of medications, the patient was re-assessed for adequacy to receive sedatives. The heart rate, respiratory rate, oxygen saturations, blood pressure, adequacy of pulmonary ventilation, and response to care were monitored throughout the procedure. The physical status of the patient was re-assessed after the procedure. After I obtained informed consent, the scope was passed under direct vision. Throughout the procedure, the patient's blood pressure, pulse, and oxygen saturations were monitored continuously. The colonoscope was introduced through the anus and advanced to the terminal ileum. The colonoscopy was performed without difficulty. The patient tolerated the procedure well. The quality of the bowel preparation was adequate. The terminal ileum, ileocecal valve, appendiceal orifice, and rectum were photographed. Scope In: 1:02:23 PM Scope Withdrawal Time 0 hours 9 minutes 32 seconds Scope Out: 1:14:18 PM Total Procedure Duration Time 0 hours 11 minutes 55 seconds Findings: The perianal exam findings include hypertrophied anal papilla(e). Non-bleeding hemorrhoids were found during endoscopy. The hemorrhoids were Grade II (internal hemorrhoids that prolapse but reduce spontaneously). Moderate rectal prolapse was present. An area of mildly congested mucosa was found in the recto-sigmoid colon, in the descending colon, in the ascending colon and in the cecum. Biopsies were taken with a cold forceps for histology. Verification of patient identification for the specimen was done. Estimated blood loss was minimal. The terminal ileum appeared normal. Biopsies were taken with a cold forceps for histology. Verification of patient identification for the specimen was done. Estimated blood loss was minimal. Impression: - Hypertrophied anal papilla(e) found on perianal exam. - Non-bleeding hemorrhoids. - Rectal prolapse. - Congested mucosa in the recto-sigmoid colon, in the descending colon, in the ascending colon and in the cecum. Biopsied. - The examined portion of the ileum was normal. Biopsied. Recommendation: - Discharge patient to home. - Resume previous diet. - Continue present medications. - Await pathology results. - Repeat colonoscopy in 5 years for surveillance. Procedure Code(s): --- Professional --- 78336, Colonoscopy, flexible; with biopsy, single or multiple CPT copyright 2021 [employer]. All rights reserved. The codes documented in this report are preliminary and upon automotive assembler review may be revised to meet current compliance requirements. Wojciech Spence DO 01/15/2025 1:32:01 PM This report has been signed electronically. Number of Addenda: 0 Note Initiated On: 01/15/2025 1:01 PM
== END 2025-01-15 14:03 | disposition home or self-care (01) ==
LOC: EN 10:56 → AC 10:57
PROVIDERS: Visit Provider Internal Medicine Gastroenterology
PROC: 0DJD8ZZ Inspection of Lower Intestinal Tract, Via Natural or Artificial Opening Endoscopic (ICD-10-PCS; CPT 45378; principal; 2025-01-15 11:55)
DX: K31.A0 Gastric intestinal metaplasia, unspecified (principal); K64.1 Second degree hemorrhoids; K90.0 Celiac disease; K62.3 Rectal prolapse; K29.80 Duodenitis without bleeding; K21.9 Gastro-esophageal reflux disease without esophagitis; Z80.0 Family history of malignant neoplasm of digestive organs; K26.9 Duodenal ulcer, unspecified as acute or chronic, without hemorrhage or perforation; K31.89 Other diseases of stomach and duodenum; Z87.891 Personal history of nicotine dependence
CPT/HCPCS: 45380; 43239; 88305; 88342; J2405

== ENCOUNTER → 2025-02-15 | Outpatient (CLI) | payer OTHER, SELFPAY ==
--- NOTE | 2025-02-15 16:00 | BI_ITS ---
EXAM: SCRN MAMM (CAD)W/KEANU BILAT DATE: 02/15/2025 CLINICAL HISTORY: F, Age 60 y/o , BREAST CANCER SCREENING No family history. TECHNIQUE: SCRN MAMM (CAD)W/KEANU BILAT COMPARISON: Prior exam(s) dated August 14, 2019.. FINDINGS: TISSUE DENSITY: The breasts are heterogeneously dense, which may obscure small masses. Bilateral Breast Mammographic Findings: No significant masses, calcifications or other abnormalities are identified. No suspicious masses, areas of developing architectural distortion, or suspicious calcifications. There has been no significant interval change. BI/SCRN MAMM (CAD)W/KEANU BILAT IMPRESSION: Stable examination. OVERALL FINAL ASSESSMENT BI-RADS 1: NEGATIVE. RECOMMENDATION: Routine annual follow-up in 1 Year A letter with findings and recommendations will be mailed to the patient. Reading Location: [id number]
== END | disposition home or self-care (01) ==
LOC: OPBI 15:46
PROVIDERS: PCP Internal Medicine; Referring Provider Internal Medicine; Visit Provider Internal Medicine
DX: Z12.31 Encounter for screening mammogram for malignant neoplasm of breast (principal)
CPT/HCPCS: 77063; 77067